=== PATIENT | male | born 2000 | race Two or more races ===

== ENCOUNTER 2023-07-16 14:28 | Emergency (ER) | payer MEDICAID ==
[~2023-07-16] VITALS: Ht 175.3 cm; Wt 90.6 kg
[2023-07-16 15:47] LABS: Acetaminophen < 2.0 UG/ML (10.0-20.0)
[2023-07-16 15:48] LABS: Salicylate < 3.0 mg/dL (2.8-20.0)
[2023-07-16 15:53] LABS: Alanine Aminotransferase 52 U/L (7-40); Albumin 5.5 g/dL (3.2-4.8); Alkaline Phosphatase 87 U/L (46-116); Anion Gap 7 (5-15); Aspartate Aminotransferase 22 U/L (13-40); BUN/Creatinine Ratio 11.7 (10.0-20.0); Blood Urea Nitrogen 14 mg/dL (9-23); Calcium 9.3 mg/dL (8.7-10.4); Carbon Dioxide 26 mmol/L (20-30); Chloride 107 mmol/L (98-107); Glucose 83 mg/dL (74-106); Potassium 4.2 mmol/L (3.5-5.1); Sodium 140 mmol/L (136-145)
[2023-07-16 15:54] LABS: Bilirubin, Total 0.5 mg/dL (0.2-1.0); Total Protein 8.1 g/dL (5.7-8.2)
[2023-07-16 15:58] LABS: Basophils # (auto) 0 10 ^3/uL (0-0.2); Basophils % (auto) 0.1 % (0.0-2.0); Eosinophils # (auto) 0.1 10 ^3/uL (0-0.8); Eosinophils % (auto) 0.6 % (0.0-7.0); Hematocrit 46.5 % (41.0-53.0); Hemoglobin 15.9 g/dL (13.5-17.5); Lymphocytes # (auto) 2.3 10 ^3/uL (0.4-5.4); Lymphocytes % (auto) 25.4 % (10.0-50.0); Mean Corpuscular Hemoglobin 30.8 pg (28.0-32.0); Mean Corpuscular Hgb Conc. 34.2 g/dL (32.0-36.0); Monocytes # (auto) 0.8 10 ^3/uL (0-1.3); Monocytes % (auto) 8.7 % (0.0-12.0); Neutrophils % (auto) 65.2 % (37.0-80.0); Nucleated Red Blood Cells % 0.1 %; Red Blood Cells 5.17 10^6/uL (4.5-5.90); Red Cell Distribution Width 13.3 % (11.8-14.3); White Blood Cell 9.2 10^3/uL (4.4-10.8)
[2023-07-16 21:15] VITALS: PULSE 62; RESP 20; O2SAT 99
[2023-07-16] MEDS ORDERED: LORazepam 2MG/ML-1ML VIAL IM PRN (22:45)
[2023-07-16] MEDS: OLANZapine 5 MG TAB PO ONE ×2 (22:45→22:49)
[2023-07-17 07:33] VITALS: RESP 16
[2023-07-17 15:45] VITALS: BP 139/70; PULSE 72; RESP 14; TEMP 97.9; O2SAT 95
[2023-07-17] MEDS ORDERED: OLANZapine 5 MG TAB PO SCH (22:00)
== END 2023-07-17 14:35 | disposition short-term general hospital (02) ==
LOC: ER 14:28
DX: F20.9 Schizophrenia, unspecified (principal)
CPT/HCPCS: 36415; 80053; 80320; 80329; 85025

== ENCOUNTER 2024-08-12 08:59 | Inpatient (IN) | payer MEDICAID ==
[~2024-08-12] VITALS: Ht 172.7 cm; Wt 114.0 kg
[2024-08-12 09:55] LABS: Basophils # (auto) 0 10 ^3/uL (0-0.2); Basophils % (auto) 0.2 % (0.0-2.0); Eosinophils # (auto) 0 10 ^3/uL (0-0.8); Eosinophils % (auto) 0.6 % (0.0-7.0); Hematocrit 47.6 % (41.0-53.0); Hemoglobin 16.2 g/dL (13.5-17.5); Lymphocytes # (auto) 3.6 10 ^3/uL (0.4-5.4); Lymphocytes % (auto) 49.5 % (10.0-50.0); Mean Corpuscular Hemoglobin 31.1 pg (28.0-32.0); Mean Corpuscular Volume 91.4 fL (80.0-100.0); Monocytes # (auto) 0.7 10 ^3/uL (0-1.3); Neutrophils % (auto) 40.7 % (37.0-80.0); Nucleated Red Blood Cells % 0.1 %; Platelet Count (auto) 322 10^3/uL (140-450); Red Cell Distribution Width 12.9 % (11.8-14.3); White Blood Cell 7.3 10^3/uL (4.4-10.8)
[2024-08-12 10:01] LABS: Anion Gap 7 (5-15); Carbon Dioxide 23 mmol/L (20-31); Chloride 108 mmol/L (98-107); Sodium 138 mmol/L (136-145)
[2024-08-12 10:02] LABS: Calcium 9.6 mg/dL (8.7-10.4)
[2024-08-12 10:06] LABS: Glucose 94 mg/dL (74-106)
[2024-08-12 10:08] LABS: BUN/Creatinine Ratio 5.4 (10.0-20.0); Blood Urea Nitrogen < 5 mg/dL (9-23)
[2024-08-12 14:14] LABS: Urine Bacteria None Seen /hpf (None Seen); Urine WBC None Seen /hpf (0 - 3)
[2024-08-12 14:31] LABS: Urine Blood Negative /uL (Negative); Urine Clarity Clear (Clear); Urine Color Colorless (Yellow); Urine Protein, UAD Negative (Negative); Urine Specific Gravity 1.007 (1.001-1.035); Urine Urobilinogen Normal (Negative); Urine pH 7.5 (5.0-9.0)
[2024-08-12] MEDS: SODIUM CHLORIDE 0.9% 1,000 ML IV ONE ×2 (17:47→17:57)
[2024-08-12] MEDS: PANTOPRAZOLE 40 MG/10 ML VIAL INJ IV ONE (17:59)
[2024-08-12] MEDS ORDERED: MORPHINE SULFATE INJ 2 MG/ml SYRG IV PRN (18:15)
[2024-08-12] MEDS ORDERED: ONDANSETRON HCL 4 MG/2 ML VIAL IV PRN (18:15)
[2024-08-12] MEDS ORDERED: HYDROcodone-ACET 5/325MG TAB PO PRN (18:15)
[2024-08-12] MEDS ORDERED: ACETAMINOPHEN 325 MG TAB PO PRN (18:15)
[2024-08-12] MEDS: PANTOPRAZOLE 40 MG/10 ML VIAL INJ IV SCH (18:55)
[2024-08-12 21:30] VITALS: BP_SYST 103; BP_SYST 127; BP_DIAS 47; BP_DIAS 76; PULSE 72; PULSE 90; RESP 18; TEMP 97.8; O2SAT 95; O2SAT 96
[2024-08-12] MEDS ORDERED: ERGO1CAP12 PO (21:45)
[2024-08-12] MEDS ORDERED: QUET1TAB11 PO (21:45)
[2024-08-12] MEDS ORDERED: FAMO20TA10 PO (21:45)
[2024-08-12] MEDS ORDERED: OMEP1CAP70 PO (21:45)
[2024-08-13 01:00] VITALS: BP 106/50; PULSE 74; RESP 19; TEMP 98.1; O2SAT 96
[2024-08-13 05:00] VITALS: BP 99/38; PULSE 62; RESP 18; TEMP 97.6; O2SAT 94
[2024-08-13 06:33] LABS: Alanine Aminotransferase 25 U/L (7-40); Alkaline Phosphatase 67 U/L (46-116); Anion Gap 5 (5-15); Aspartate Aminotransferase 11 U/L (13-40); BUN/Creatinine Ratio 7.2 (10.0-20.0); Blood Urea Nitrogen 7 mg/dL (9-23); Calcium 9.3 mg/dL (8.7-10.4); Carbon Dioxide 27 mmol/L (20-31); Chloride 108 mmol/L (98-107); Glucose 93 mg/dL (74-106); Potassium 4.1 mmol/L (3.5-5.1); Sodium 140 mmol/L (136-145)
[2024-08-13 06:34] LABS: Bilirubin, Total 0.2 mg/dL (0.2-1.0); Total Protein 6.9 g/dL (5.7-8.2)
[2024-08-13 06:42] LABS: Partial Thromboplastin Time 27.1 SEC (24.5-34.5); Prothrombin Time 10.6 sec (9.3-11.8)
[2024-08-13 06:48] LABS: Basophils # (auto) 0 10 ^3/uL (0-0.2); Basophils % (auto) 0.3 % (0.0-2.0); Eosinophils # (auto) 0.1 10 ^3/uL (0-0.8); Eosinophils % (auto) 1.2 % (0.0-7.0); Hematocrit 43.7 % (41.0-53.0); Lymphocytes # (auto) 2.7 10 ^3/uL (0.4-5.4); Lymphocytes % (auto) 40.5 % (10.0-50.0); Mean Corpuscular Hemoglobin 30.7 pg (28.0-32.0); Mean Corpuscular Hgb Conc. 34.4 g/dL (32.0-36.0); Mean Corpuscular Volume 89.4 fL (80.0-100.0); Monocytes # (auto) 0.7 10 ^3/uL (0-1.3); Monocytes % (auto) 10.1 % (0.0-12.0); Neutrophils # (auto) 3.2 10 ^3/uL (1.6-8.6); Neutrophils % (auto) 47.9 % (37.0-80.0); Nucleated Red Blood Cells % 0.1 %; Platelet Count (auto) 297 10^3/uL (140-450); Red Blood Cells 4.89 10^6/uL (4.5-5.90); Red Cell Distribution Width 12.7 % (11.8-14.3); White Blood Cell 6.6 10^3/uL (4.4-10.8)
[2024-08-13 08:00] VITALS: PULSE 78; RESP 18; O2SAT 96
[2024-08-13 09:00] VITALS: BP 99/48; PULSE 63; RESP 16; TEMP 97.9; O2SAT 94
[2024-08-13] MEDS ORDERED: PANT40TA2 PO (12:38)
[2024-08-13 13:00] VITALS: BP 103/56; PULSE 70; RESP 16; TEMP 98.9; O2SAT 95
[2024-08-16 13:06] LABS: Saccharomyces cerevisiae IgA <20.0 Units (0.0-24.9)
== END 2024-08-13 15:15 | disposition home or self-care (01) | DRG 241 ==
LOC: ER 08:59 → OVERFLOW 18:12 → EAST 20:52
PROVIDERS: ADMIT Student in an Organized Health Care Education/Training Program; ATTEND Student in an Organized Health Care Education/Training Program
DX: K27.9 Peptic ulcer, site unspecified, unspecified as acute or chronic, without hemorrhage or perforation (principal); K76.0 Fatty (change of) liver, not elsewhere classified; F20.9 Schizophrenia, unspecified; K29.70 Gastritis, unspecified, without bleeding
CPT/HCPCS: 36415; 74176; 80048; 80053; 81001; 85025; 85610; 85730; 86256; 86671; 86850; 86900; 86901; 96361; 96374; 99291; G0378; J2470